=== PATIENT | male | born 1995 | race Caucasian/White ===

== ENCOUNTER 2025-01-25 19:19 | Emergency (ER) | payer BC, SELFPAY ==
[2025-01-25 19:36] VITALS: BP 154/102
[2025-01-25 20:02] LABS: Hematocrit 41.8 % (39.0-52.0); Hemoglobin 14.1 g/dL (13.0-18.0); Mean Corp Hgb Conc. 33.7 g/dL (33.0-37.0); Mean Corpuscular Volume 88.6 fL (80.0-94.0); Nucleated Red Blood Cells % 0 % (-); Platelet Count 149 10^3/uL (130-400); Red Cell Dist. Width 13.7 % (11.5-14.5)
[2025-01-25 20:12] LABS: ALT (SGPT) 23 U/L (0-50); AST (SGOT) 28 U/L (17-59); Albumin 5.3 g/dl (3.5-5.0); Alkaline Phosphatase 78 U/L (38-126); Blood Urea Nitrogen 19 mg/dl (9-20); Calcium 9.8 mg/dl (8.4-10.2); Carbon Dioxide 25 mmol/L (22-30); Chloride 100 mmol/L (98-107); Glucose 100 mg/dl (70-99); Lipase 52 U/L (23-300); Potassium 4.3 mmol/L (3.5-5.1); Sodium 137 mmol/L (135-145); Total Protein 9.0 g/dl (6.3-8.2); eGFR > 60.00
[2025-01-25 20:59] LABS: Urine Character Slightly Cloudy (Clear)
[2025-01-25 21:00] LABS: Urine Squamous Cell 0-2 /LPF (Few); Urine White Cell 0-2 /HPF (0-5)
--- NOTE | 2025-01-25 22:28 | ED.GENMED ---
History of Present Illness
General
Chief Complaint: Abdominal Symptoms
Source: patient
Time Seen by Provider: 01/25/25 22:09
History of Present Illness
History of Present Illness:
29-year-old male presents with mid abdominal pain with several episodes of vomiting starting today. She has been having intermittent mid abdominal pain over the past week. He thought it was his reflux flaring up. He was taking Prilosec with some
relief initially however the pain returned. He does not drink alcohol regularly. He drinks couple coffee daily. No regular use of NSAIDs. Denies any black dark or tarry stools. No diarrhea. No fever. No chest pain or shortness of breath. No
known sick contacts
Past History
Past History
ED Past Medical History: Other (ADHD, bicuspid aortic valve, Scoliosis); Negative Asthma, HTN, Hypercholesterolemia or NIDDM
ED Past Surgical History: Other (Hernia repair, Orchiopexy)
Social History
Tobacco: Non-smoker
Alcohol: Occasional
Drug: None
Personal: Single
Living: with family
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
Family History
Family History: Other (Father with colon cancer)
Phy Exam
Physical Exam
Physical Exam:
General: Well-appearing male no acute respiratory distress
HEENT: Normal cephalic atraumatic
Heart: Regular rate and rhythm
Lungs: Clear no wheeze
Abd: soft, nontender
Ext: no cyanosis
skin: warm, no rash
Course
Orders/Labs/Results
Orders:
Orders
01/25/25 19:39
Complete Blood Count/With Diff Urgent
Comprehensive Metabolic Panel Urgent
Lipase Urgent
Urinalysis Reflex To Culture Urgent
Date Specimen was Collected: 01/25/25
Time Specimen was Collected: 19:35
Urine Microscopic Reflex Cult Urgent
Urine Culture Urgent
JOSE G Source: U
Specimen Description:
Date Specimen was Collected: 01/25/25
Time Specimen was Collected: 19:35
01/25/25 22:24
0.9% Sodium Chloride 1000 ml [Nss] 1,000 ml IV BOLUS
Famotidine [Pepcid] 20 mg IV NOW STA
Ondansetron Injectable [Zofran] 4 mg IV NOW STA
Abnormal Lab Results
01/25/25
19:39
WBC 15.2 H 10^3/uL
(4.8-10.8)
MPV 12.2 H fL
(7.4-10.4)
Absolute Neuts (auto) 12.5 H 10^3/uL
(1.4-6.5)
Absolute Monos (auto) 0.8 H 10^3/uL
(0.1-0.6)
Neutrophils % 82.7 H %
(42.2-75.2)
Lymphocytes % 11.2 L %
(20.5-51.1)
Glucose 100 H mg/dl
(70-99)
Total Protein 9.0 H g/dl
(6.3-8.2)
Albumin 5.3 H g/dl
(3.5-5.0)
Urine Ketones 3+ A
(Negative)
Ur Occult Blood Reflex 1+ A
(Negative)
Urine RBC 3-6 A /HPF
(0-2)
Urine Bacteria (Reflex) Moderate A
(Negative)
Urine Albumin (Reflex) 2+ A
(Neg - Trace)
01/25/25 19:39
01/25/25 19:39
Vital Signs
Initial and Last Documented VS:
Initial Vital Signs
Temp Pulse Resp BP Pulse Ox
98.7 F 95 15 154/102 98
01/25/25 19:36 01/25/25 19:36 01/25/25 19:36 01/25/25 19:36 01/25/25 19:36
Last Documented Vital Signs
Temp Pulse Resp BP Pulse Ox
98.7 F 95 15 154/102 98
01/25/25 19:36 01/25/25 19:36 01/25/25 19:36 01/25/25 19:36 01/25/25 22:31
MDM/Problems Addressed
Differential Diagnosis Includes:
Patient with intermittent abdominal discomfort and vomiting. Benign abdominal exam currently no indication for imaging. Consider viral illness versus gastritis versus reflux. Lipase is normal which would point away from pancreatitis. Will
hydrate give Zofran and Pepcid.
*Pulse Oximetry
SaO2: 98
Oxygen Mode of Delivery: Room air
Patient hypoxic: no
*Critical Care Note
Total Time (30-74mins, 75-104mins- exclusive of procedures): Not Applicable
Update Note
Update Note:
No further vomiting here. Reassessment provide persistent benign abdominal exam. I suspect gastritis. Recommended bland diet. Will prescribe Zofran for nausea. He will continue his PPI and follow-up.
ED Attending Note
-
Portions of this chart may have been created with voice recognition software.� Occasional wrong word or��sound alike� substitutions may have occurred due to the inherent limitations of voice recognition software.
Discharge Plan
Departure
Patient Disposition: Home (Routine Discharge)
Date of Disposition: 01/26/25
Time of Disposition: 00:26
Patient with high blood pressure during this ER visit?: No
Discharge Problem:
Vomiting
Instructions: Nausea and Vomiting, Adult (DC)
Prescriptions:
New
ondansetron 4 mg tablet,disintegrating
4 mg PO Q8H PRN (Reason: nausea and vomiting) Qty: 10 0RF
No Action
pramoxine-mineral oil-zinc 24 GM ointment
24 gm RC BID PRN (Reason: rectal pain) Qty: 1 0RF
doxycycline hyclate 100 MG capsule
100 mg PO Q12 Qty: 14 0RF
Referrals:
Yaya Telles CRNP [Family Provider]
Activity Restrictions/Additional Instructions:
Continue Prilosec. Use Zofran as needed for nausea. Eat a bland diet. Avoid alcohol anti-inflammatories and caffeine.
Interventions
Interventions:
*Risk Screen - Suicide Last Done: 01/25/25 19:36
*General Assessment Last Done: 01/25/25 19:36
*Neglect/Abuse Screening Last Done: 01/25/25 19:36
*ED- Fall Risk Assessment Last Done: 01/26/25 00:17
*ED COVID-19 Vaccine History Last Done: 01/25/25 19:36
BN-Efpypp-Mprneaisgm Assessment Last Done: 01/25/25 23:26
Discharge Date and Time
Print Language: MACEDONIAN
[2025-01-25] MEDS: ZOFRAN 4 MG IV (23:14)
[2025-01-25] MEDS: NSS 1000 IV (23:14)
[2025-01-25] MEDS: PEPCID 20 MG IV (23:14)
[2025-01-26 00:40] VITALS: BP 129/79
== END 2025-01-26 00:42 | disposition home or self-care (01) ==
LOC: EMR 19:19
PROVIDERS: Emergency Medicine; EMERGENCY PHYSICIAN Student in an Organized Health Care Education/Training Program; FAMILY PHYSICIAN Nurse Practitioner Family
DX: R11.10 Vomiting, unspecified (principal); R10.9 Unspecified abdominal pain
CPT/HCPCS: 96374; 96375; 96361; 99284; 80053; 81003; 81015; 83690; 85025; 87086; 93005